=== PATIENT | female | born 1990 | race Caucasian/White ===

== ENCOUNTER 2016-09-19 11:09 | Inpatient (IN) | payer OTHER ==
[2016-09-19 12:24] VITALS: BMI 34.7
--- NOTE | 2016-09-19 13:34 | HP ---
Admission [facility] Chief Complaint: i am here for rehab from heroin,valium,oxydodone.mmtp Allergies/Adverse Reactions: Allergies Allergy/AdvReac Type Severity Reaction Status Date / Time No Known Allergies Allergy Verified 09/19/16 13:29 History of Present Illness: this 26 years old female with opioid dependence and benzodiazepam dependence, mmtp 70 mg/day,last medicated today, last detox 2014 [facility] nicotine dependence bipolar disorder ptsd Exam Limitations: No Limitations - Ebola screening Have you traveled outside of the country in the last 21 days: No Have you had contact with anyone from an Ebola affected area: No Have you been sick,other than usual withdrawal symptoms: No Do you have a fever: No - Review of Systems Constitutional: No Symptoms Reported EENT: reports: No Symptoms Reported Respiratory: reports: No Symptoms reported Cardiac: reports: No Symptoms Reported GI: reports: No Symptoms Reported : reports: No Symptoms Reported Musculoskeletal: reports: Muscle Pain Integumentary: reports: No Symptoms Reported Neuro: reports: No Symptoms reported Endocrine: reports: No Symptoms Reported Hematology: reports: No Symptoms Reported Psychiatric: reports: other (bipolar disorder,ptsd) Patient History - Patient Medical History Hx Anemia: No Hx Asthma: No Hx Chronic Obstructive Pulmonary Disease (COPD): No Hx Cancer: No Hx Cardiac Disorders: No Hx Congestive Heart Failure: No Hx Hypertension: No Hx Hypercholesterolemia: No Hx Pacemaker: No HX Cerebrovascular Accident: No Hx Seizures: No Hx Dementia: No Hx Diabetes: No Hx Gastrointestinal Disorders: No Hx Liver Disease: No Hx Genitourinary Disorders: No Hx Sexually Transmitted Disorders: No Hx Renal Disease (ESRD): No Hx Thyroid Disease: No Hx Human Immunodeficiency Virus (HIV): No (last 2015 ) Hx Hepatitis C: No Hx Depression: No Hx Suicide Attempt: No Hx Bipolar Disorder: Yes (no med) Hx Schizophrenia: No Other Medical History: no suicidal,no homicidal - Patient Surgical History Past Surgical History: No - PPD History Previous Implant?: Yes Documented Results: Negative w/proof Implanted On Prior [facility] Admission?: No PPD to be Administered?: Yes - Reproductive History Patient is a Female of Child Bearing Age (11 -55 yrs old): Yes Last Menstrual Period: 09/15/16 Patient : No - Smoking Cessation Smoking history: Current every day smoker Have you smoked in the past 12 months: Yes Aproximately how many cigarettes per day: 30 Cigars Per Day: 0 Hx Chewing Tobacco Use: No Initiated information on smoking cessation: Yes 'Breaking Loose' booklet given: 09/19/16 - Substance & Tx. History Hx Alcohol Use: No Hx Substance Use: Yes Substance Use Type: Heroin, Tranquilizers Hx Substance Use Treatment: Yes (2014 [facility]) - Substances Abused Heroin Route: Inhalation Frequency: 1-2 times per week Amount used: 2-3 bags Age of first use: 23 Date of Last Use: 09/17/16 Valium Route: Oral Frequency: 3-6 times per week Amount used: 15mg Age of first use: 17 Date of Last Use: 10/12/16 Oxycodone Route: Oral Frequency: 3-6 times per week Amount used: 20-30mg Age of first use: 25 Date of Last Use: 10/11/16 Family Disease History - Family Disease History Family Disease History: Other: Father (dsa) Admission Physical Exam [facility] - Vital Signs Vital Signs: Vital Signs - 24 hr 09/19/16 12:22 Temperature 97.0 F L Pulse Rate 83 Respiratory 18 Rate Blood Pressure 103/56 - Physical General Appearance: Yes: Within Normal Limits HEENTM: Yes: Within Normal Limits Respiratory: Yes: Lungs Clear Neck: Yes: Within Normal Limits Breast: Yes: Breast Exam Deferred Cardiology: Yes: Within Normal Limits, Regular Rhythm, Regular Rate, S1, S2 Abdominal: Yes: Within Normal Limits, Normal Bowel Sounds, Flat, Soft Genitourinary: Yes: Within Normal Limits Back: Yes: Muscle Spasm Musculoskeletal: Yes: Within Normal Limits Extremities: Yes: Within Normal Limits Neurological: Yes: civil attorney II-XII NML intact, Alert, Motor Strength 5/5 Integumentary: Yes: Within Normal Limits, Other (abscess of left hand 3 weeks ago) Lymphatic: Yes: Within Normal Limits - Diagnostic (1) Opioid dependence Current Visit: Yes Status: Acute (2) Benzodiazepine dependence Current Visit: Yes Status: Acute (3) Methadone maintenance therapy patient Current Visit: Yes Status: Acute (4) Nicotine dependence Current Visit: Yes Status: Acute (5) Bipolar disorder Current Visit: Yes Status: Acute (6) PTSD (post-traumatic stress disorder) Current Visit: Yes Status: Acute (7) Abscess of left hand Current Visit: Yes Status: Acute Cleared for Admission [facility] - Detox or Rehab Claeared for Rehab Admission: Yes [facility] Breath Alcohol Content Breath Alcohol Content: 0 Urine Pregancy Test - Result Urine Test Results: Negative- NO Line Present Urine Drug Screen - Results Drug Screen Negative: No Urine Drug Screen Results: OPI-Opiates, BZO-Benzodiazepines, MTD-Methadone, OXY- Oxycodone
[2016-09-19] MEDS ORDERED: MENTHOL/PHENOL 1 EACH UD MM PRN (13:54)
[2016-09-19] MEDS ORDERED: MAGNESIUM CITRATE 300 ML BOTTLE PO PRN (13:54)
[2016-09-19] MEDS ORDERED: IBUPROFEN 400 MG TABLET (FP) PO PRN (13:54)
[2016-09-19] MEDS ORDERED: hydrOXYzine PAMOATE 50 MG CAPSULE (FP) PO PRN (13:54)
[2016-09-19] MEDS ORDERED: MAG HYDROX/AL HYDROX/SIMETH 30 ML UNIT-DOSE CUP PO PRN (13:54)
[2016-09-19] MEDS ORDERED: P-EPHED 60MG/TRIPROLIDI 2.5MG TABLET PO PRN (13:54)
[2016-09-19] MEDS ORDERED: LOPERAMIDE HCL 2 MG CAPSULE PO PRN (13:54)
[2016-09-19] MEDS ORDERED: MAGNESIUM HYDROX 2400MG/30ML ORAL SUSPENSION 30 ML CUP PO PRN (13:54)
[2016-09-19] MEDS ORDERED: guaiFENesin/D-METHORPHAN HB 10 ML UNIT-DOSE CUPS PO PRN (13:54)
[2016-09-19 17:02] LABS: MCH 27.1 pg (25.7-33.7); MCHC 32.8 g/dl (32.0-36.0); MEAN CELL VOLUME 82.8 fl (80-96); MEAN PLT VOLUME 8.8 fl (7.5-11.1); PLATELET COUNT 193 K/MM3 (134-434); RDW 15.3 % (11.6-15.6); WHITE BLOOD COUNT 5.7 K/mm3 (4.0-10.0)
[2016-09-19 17:21] LABS: CREATININE 0.6 mg/dL (0.55-1.02); GLUCOSE,RANDOM 81 mg/dL (74-106)
[2016-09-19 17:22] LABS: ALBUMIN 3.4 g/dl (3.4-5.0); ALK PHOS 84 U/L (45-117); ANION GAP 11 (8-16); BILIRUBIN,TOTAL 0.3 mg/dL (0.2-1.0); CALCIUM 8.5 mg/dL (8.5-10.1); CO2 28 mmol/L (21-32); SGOT/AST 14 U/L (15-37); SGPT/ALT 11 U/L (12-78); TOT PROT 6.1 g/dl (6.4-8.2)
[2016-09-19 17:43] LABS: URINE APPEARANCE CLEAR; URINE BILIRUBIN NEGATIVE (NEGATIVE); URINE COLOR STRAW; URINE GLUCOSE (UA) NEGATIVE (NEGATIVE); URINE KETONE NEGATIVE (NEGATIVE); URINE LEUK ESTERASE NEGATIVE (NEGATIVE); URINE NITRITE NEGATIVE (NEGATIVE); URINE PROTEIN NEGATIVE (NEGATIVE); URINE UROBILINOGEN NEGATIVE E.U./dl (0.2-1.0)
[2016-09-19 17:59] LABS: URINE BLOOD 1+ (NEGATIVE)
[2016-09-19 18:16] LABS: URINE BACTERIA RARE /hpf (NONE SEEN); URINE MUCUS RARE; URINE RBC 3 /hpf (0-3); URINE WBC <1 /hpf (3-5)
[2016-09-19] MEDS ORDERED: LIDOCAINE VISCOUS 2% ORAL/TOP 20 ML UNIT-DOSE CUP MM PRN (18:55)
--- NOTE | 2016-09-19 18:56 | PN ---
S Progress Note Note: RECEIVED NURSE CALL PATIENT HAS TOOTH ACHE LIDOCAINE VISCOUS PRN CONTINUE REHAB
[2016-09-19] MEDS: THIAMINE HCL 100 MG TABLET (FP) PO SCH (21:38)
[2016-09-19] MEDS: SILVER SULFADIAZINE 1% TOP CREAM 50 GM JAR TP SCH (21:38)
[2016-09-19] MEDS: IBUPROFEN 600 MG TABLET (FP) PO PRN (21:39)
[2016-09-20] MEDS ORDERED: METHADONE HCL 10 MG TABLET PO SCH (06:00)
[2016-09-20] MEDS ORDERED: METHADONE HCL 10 MG TABLET ONE (06:04)
[2016-09-20] MEDS ORDERED: METHADONE HCL 40 MG DISPERSABLE TABLET ONE (06:05)
[2016-09-20] MEDS: METHADONE 40 MG, METHADONE 30 MG PO SCH (06:50)
[2016-09-20] MEDS: IBUPROFEN 600 MG TABLET (FP) PO PRN ×3 (08:51→21:33)
[2016-09-20] MEDS: NICOTINE 21 MG/24 HOURS TOPICAL PATCH TD SCH (10:02)
[2016-09-20] MEDS: SILVER SULFADIAZINE 1% TOP CREAM 50 GM JAR TP SCH ×2 (10:02→21:33)
[2016-09-20] MEDS: PRENATAL VITAMINS W/ FOLIC ACID TABLET (FP) PO SCH (10:02)
[2016-09-20] MEDS: NICOTINE POLACRILEX 4 MG GUM BUC PRN (10:04)
[2016-09-20 13:38] LABS: URINE APPEARANCE SLCLOUDY; URINE BILIRUBIN NEGATIVE (NEGATIVE); URINE BLOOD NEGATIVE (NEGATIVE); URINE COLOR YELLOW; URINE GLUCOSE (UA) NEGATIVE (NEGATIVE); URINE KETONE NEGATIVE (NEGATIVE); URINE LEUK ESTERASE TRACE (NEGATIVE); URINE NITRITE NEGATIVE (NEGATIVE); URINE PROTEIN NEGATIVE (NEGATIVE); URINE UROBILINOGEN NEGATIVE E.U./dl (0.2-1.0)
[2016-09-20 13:41] LABS: URINE BACTERIA RARE /hpf (NONE SEEN); URINE MUCUS RARE; URINE RBC 1 /hpf (0-3); URINE WBC 2 /hpf (3-5)
[2016-09-20] MEDS ORDERED: PT OWN MED DRAWER 7, Y5N ONE (16:03)
[2016-09-20] MEDS: LIDOCAINE VISCOUS 2% ORAL/TOP 20 ML UNIT-DOSE CUP MM PRN ×2 (16:05→21:32)
--- NOTE | 2016-09-20 18:33 | EKG ---
Test Reason : Blood Pressure : / mmHG Vent. Rate : 074 BPM Atrial Rate : 074 BPM P-R Int : 172 ms QRS Dur : 094 ms QT Int : 416 ms P-R-T Axes : 022 038 037 degrees QTc Int : 461 ms NORMAL SINUS RHYTHM CANNOT RULE OUT ANTERIOR INFARCT , AGE UNDETERMINED T WAVE ABNORMALITY, CONSIDER ANTERIOR ISCHEMIA ABNORMAL ECG NO PREVIOUS ECGS AVAILABLE Confirmed by YAMILETH LEMUS MD ([id number]) on 09/20/2016 6:33:01 PM Referred By: Confirmed By:YAMILETH LEMUS MD
[2016-09-20] MEDS: THIAMINE HCL 100 MG TABLET (FP) PO SCH (21:28)
[2016-09-21] MEDS ORDERED: METHADONE HCL 10 MG TABLET ONE (05:42)
[2016-09-21] MEDS ORDERED: METHADONE HCL 40 MG DISPERSABLE TABLET ONE (05:43)
[2016-09-21] MEDS: IBUPROFEN 600 MG TABLET (FP) PO PRN ×3 (06:06→21:35)
[2016-09-21] MEDS: METHADONE 40 MG, METHADONE 30 MG PO SCH (06:06)
[2016-09-21] MEDS: LIDOCAINE VISCOUS 2% ORAL/TOP 20 ML UNIT-DOSE CUP MM PRN ×3 (06:20→21:37)
[2016-09-21] MEDS: ACETAMINOPHEN 325 MG TABLET (FP) PO PRN ×2 (08:51→15:22)
[2016-09-21] MEDS: PRENATAL VITAMINS W/ FOLIC ACID TABLET (FP) PO SCH (09:51)
[2016-09-21] MEDS: SILVER SULFADIAZINE 1% TOP CREAM 50 GM JAR TP SCH ×2 (09:52→21:34)
[2016-09-21] MEDS: NICOTINE 21 MG/24 HOURS TOPICAL PATCH TD SCH (09:52)
[2016-09-21] MEDS: NICOTINE POLACRILEX 4 MG GUM BUC PRN (09:52)
[2016-09-21] MEDS: THIAMINE HCL 100 MG TABLET (FP) PO SCH (21:34)
[2016-09-22] MEDS ORDERED: METHADONE HCL 40 MG DISPERSABLE TABLET ONE (03:16)
[2016-09-22] MEDS ORDERED: METHADONE HCL 10 MG TABLET ONE (03:16)
[2016-09-22] MEDS: METHADONE 40 MG, METHADONE 30 MG PO SCH (06:30)
[2016-09-22] MEDS: IBUPROFEN 600 MG TABLET (FP) PO PRN ×3 (06:31→21:23)
[2016-09-22] MEDS: LIDOCAINE VISCOUS 2% ORAL/TOP 20 ML UNIT-DOSE CUP MM PRN ×3 (06:32→21:23)
[2016-09-22] MEDS: NICOTINE 21 MG/24 HOURS TOPICAL PATCH TD SCH (10:06)
[2016-09-22] MEDS: PRENATAL VITAMINS W/ FOLIC ACID TABLET (FP) PO SCH (10:06)
[2016-09-22] MEDS: ACETAMINOPHEN 325 MG TABLET (FP) PO PRN (10:08)
[2016-09-22] MEDS: NICOTINE POLACRILEX 4 MG GUM BUC PRN (10:09)
[2016-09-22] MEDS: SILVER SULFADIAZINE 1% TOP CREAM 50 GM JAR TP SCH ×2 (10:09→21:24)
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
[2016-09-22] MEDS: QUEtiapine FUMARATE 100 MG TABLET (FP) PO SCH (21:22)
[2016-09-22] MEDS: THIAMINE HCL 100 MG TABLET (FP) PO SCH (21:22)
[2016-09-23] MEDS ORDERED: METHADONE HCL 40 MG DISPERSABLE TABLET ONE (05:48)
[2016-09-23] MEDS ORDERED: METHADONE HCL 10 MG TABLET ONE (05:48)
[2016-09-23] MEDS: METHADONE 40 MG, METHADONE 30 MG PO SCH (06:25)
[2016-09-23] MEDS: IBUPROFEN 600 MG TABLET (FP) PO PRN ×3 (06:29→21:31)
[2016-09-23] MEDS ORDERED: PT OWN MED DRAWER 7, Y5N ONE ×2 (08:31→20:07)
[2016-09-23] MEDS: NICOTINE 21 MG/24 HOURS TOPICAL PATCH TD SCH (09:55)
[2016-09-23] MEDS: PRENATAL VITAMINS W/ FOLIC ACID TABLET (FP) PO SCH (09:55)
[2016-09-23] MEDS: SILVER SULFADIAZINE 1% TOP CREAM 50 GM JAR TP SCH ×2 (09:56→21:29)
[2016-09-23] MEDS: QUEtiapine FUMARATE 100 MG TABLET (FP) PO SCH (21:28)
[2016-09-23] MEDS: THIAMINE HCL 100 MG TABLET (FP) PO SCH (21:29)
[2016-09-23] MEDS: LIDOCAINE VISCOUS 2% ORAL/TOP 20 ML UNIT-DOSE CUP MM PRN (21:30)
[2016-09-24] MEDS ORDERED: METHADONE HCL 10 MG TABLET ONE (03:43)
[2016-09-24] MEDS ORDERED: METHADONE HCL 40 MG DISPERSABLE TABLET ONE (03:43)
[2016-09-24] MEDS: METHADONE 40 MG, METHADONE 30 MG PO SCH (06:46)
[2016-09-24] MEDS: IBUPROFEN 600 MG TABLET (FP) PO PRN ×2 (06:48→21:28)
[2016-09-24] MEDS: LIDOCAINE VISCOUS 2% ORAL/TOP 20 ML UNIT-DOSE CUP MM PRN (06:49)
[2016-09-24] MEDS: NICOTINE 21 MG/24 HOURS TOPICAL PATCH TD SCH (10:28)
[2016-09-24] MEDS: NICOTINE POLACRILEX 4 MG GUM BUC PRN (10:29)
[2016-09-24] MEDS: ACETAMINOPHEN 325 MG TABLET (FP) PO PRN (10:29)
[2016-09-24] MEDS: PRENATAL VITAMINS W/ FOLIC ACID TABLET (FP) PO SCH (10:30)
[2016-09-24] MEDS: SILVER SULFADIAZINE 1% TOP CREAM 50 GM JAR TP SCH ×2 (10:30→21:29)
[2016-09-24] MEDS: QUEtiapine FUMARATE 100 MG TABLET (FP) PO SCH (21:29)
[2016-09-24] MEDS: diphenhydrAMINE HCL 50 MG CAPSULE PO PRN (21:29)
[2016-09-24] MEDS: THIAMINE HCL 100 MG TABLET (FP) PO SCH (21:29)
[2016-09-25] MEDS ORDERED: METHADONE HCL 40 MG DISPERSABLE TABLET ONE (03:13)
[2016-09-25] MEDS ORDERED: METHADONE HCL 10 MG TABLET ONE (03:13)
[2016-09-25] MEDS: METHADONE 40 MG, METHADONE 30 MG PO SCH (06:44)
[2016-09-25] MEDS: IBUPROFEN 600 MG TABLET (FP) PO PRN ×2 (06:45→21:32)
[2016-09-25] MEDS: LIDOCAINE VISCOUS 2% ORAL/TOP 20 ML UNIT-DOSE CUP MM PRN ×2 (06:45→21:32)
[2016-09-25] MEDS: ACETAMINOPHEN 325 MG TABLET (FP) PO PRN (10:04)
[2016-09-25] MEDS: SILVER SULFADIAZINE 1% TOP CREAM 50 GM JAR TP SCH ×2 (10:05→21:30)
[2016-09-25] MEDS: PRENATAL VITAMINS W/ FOLIC ACID TABLET (FP) PO SCH (10:05)
[2016-09-25] MEDS: NICOTINE 21 MG/24 HOURS TOPICAL PATCH TD SCH (10:06)
[2016-09-25] MEDS: NICOTINE POLACRILEX 4 MG GUM BUC PRN (10:07)
[2016-09-25] MEDS: QUEtiapine FUMARATE 100 MG TABLET (FP) PO SCH (21:30)
[2016-09-25] MEDS: THIAMINE HCL 100 MG TABLET (FP) PO SCH (21:30)
[2016-09-25] MEDS: diphenhydrAMINE HCL 50 MG CAPSULE PO PRN (21:32)
[2016-09-26] MEDS ORDERED: METHADONE HCL 10 MG TABLET PO SCH (06:00)
[2016-09-26] MEDS ORDERED: METHADONE HCL 40 MG DISPERSABLE TABLET ONE (06:32)
[2016-09-26] MEDS ORDERED: METHADONE HCL 10 MG TABLET ONE (06:32)
[2016-09-26] MEDS: METHADONE 40 MG, METHADONE 30 MG PO SCH (06:56)
[2016-09-26] MEDS: IBUPROFEN 600 MG TABLET (FP) PO PRN ×3 (06:59→21:23)
[2016-09-26] MEDS: SILVER SULFADIAZINE 1% TOP CREAM 50 GM JAR TP SCH ×2 (10:15→23:07)
[2016-09-26] MEDS: NICOTINE 21 MG/24 HOURS TOPICAL PATCH TD SCH (10:15)
[2016-09-26] MEDS: PRENATAL VITAMINS W/ FOLIC ACID TABLET (FP) PO SCH (10:15)
[2016-09-26] MEDS: NICOTINE POLACRILEX 4 MG GUM BUC PRN (10:17)
[2016-09-26] MEDS: ACETAMINOPHEN 325 MG TABLET (FP) PO PRN (10:18)
[2016-09-26] MEDS: QUEtiapine FUMARATE 100 MG TABLET (FP) PO SCH (21:22)
[2016-09-26] MEDS: THIAMINE HCL 100 MG TABLET (FP) PO SCH (21:22)
[2016-09-26] MEDS: diphenhydrAMINE HCL 50 MG CAPSULE PO PRN (21:24)
[2016-09-27] MEDS ORDERED: METHADONE HCL 10 MG TABLET ONE (03:08)
[2016-09-27] MEDS ORDERED: METHADONE HCL 40 MG DISPERSABLE TABLET ONE (03:09)
[2016-09-27] MEDS: METHADONE 40 MG, METHADONE 30 MG PO SCH (06:40)
[2016-09-27] MEDS: IBUPROFEN 600 MG TABLET (FP) PO PRN ×2 (06:42→18:10)
[2016-09-27] MEDS ORDERED: PT OWN MED DRAWER 7, Y5N ONE ×2 (08:17→19:59)
[2016-09-27] MEDS: SILVER SULFADIAZINE 1% TOP CREAM 50 GM JAR TP SCH ×2 (09:40→21:31)
[2016-09-27] MEDS: PRENATAL VITAMINS W/ FOLIC ACID TABLET (FP) PO SCH (09:40)
[2016-09-27] MEDS: NICOTINE 21 MG/24 HOURS TOPICAL PATCH TD SCH (09:40)
[2016-09-27] MEDS: LIDOCAINE VISCOUS 2% ORAL/TOP 20 ML UNIT-DOSE CUP MM PRN (09:42)
[2016-09-27] MEDS: ACETAMINOPHEN 325 MG TABLET (FP) PO PRN ×2 (09:42→21:32)
[2016-09-27] MEDS: NICOTINE POLACRILEX 4 MG GUM BUC PRN (09:43)
[2016-09-27] MEDS: THIAMINE HCL 100 MG TABLET (FP) PO SCH (21:30)
[2016-09-27] MEDS: QUEtiapine FUMARATE 100 MG TABLET (FP) PO SCH (21:31)
[2016-09-27] MEDS: diphenhydrAMINE HCL 50 MG CAPSULE PO PRN (21:32)
[2016-09-28] MEDS ORDERED: METHADONE HCL 10 MG TABLET ONE (03:18)
[2016-09-28] MEDS ORDERED: METHADONE HCL 40 MG DISPERSABLE TABLET ONE (03:18)
[2016-09-28] MEDS: METHADONE 40 MG, METHADONE 30 MG PO SCH (06:29)
[2016-09-28] MEDS: IBUPROFEN 600 MG TABLET (FP) PO PRN ×3 (06:30→23:17)
[2016-09-28] MEDS: NICOTINE 21 MG/24 HOURS TOPICAL PATCH TD SCH (10:03)
[2016-09-28] MEDS: PRENATAL VITAMINS W/ FOLIC ACID TABLET (FP) PO SCH (10:03)
[2016-09-28] MEDS: SILVER SULFADIAZINE 1% TOP CREAM 50 GM JAR TP SCH ×2 (10:04→21:13)
[2016-09-28] MEDS: NICOTINE POLACRILEX 4 MG GUM BUC PRN (10:06)
[2016-09-28] MEDS: ACETAMINOPHEN 325 MG TABLET (FP) PO PRN ×2 (10:06→19:01)
[2016-09-28] MEDS ORDERED: PT OWN MED DRAWER 7, Y5N ONE (19:57)
[2016-09-28] MEDS: LIDOCAINE VISCOUS 2% ORAL/TOP 20 ML UNIT-DOSE CUP MM PRN (21:13)
[2016-09-28] MEDS: diphenhydrAMINE HCL 50 MG CAPSULE PO PRN (21:13)
[2016-09-28] MEDS: QUEtiapine FUMARATE 100 MG TABLET (FP) PO SCH (21:13)
[2016-09-28] MEDS: THIAMINE HCL 100 MG TABLET (FP) PO SCH (21:13)
[2016-09-29] MEDS ORDERED: METHADONE HCL 10 MG TABLET ONE (03:23)
[2016-09-29] MEDS ORDERED: METHADONE HCL 40 MG DISPERSABLE TABLET ONE (03:23)
[2016-09-29] MEDS: IBUPROFEN 600 MG TABLET (FP) PO PRN ×3 (06:47→21:31)
[2016-09-29] MEDS: METHADONE 40 MG, METHADONE 30 MG PO SCH (06:47)
[2016-09-29] MEDS: PRENATAL VITAMINS W/ FOLIC ACID TABLET (FP) PO SCH (10:08)
[2016-09-29] MEDS: SILVER SULFADIAZINE 1% TOP CREAM 50 GM JAR TP SCH ×2 (10:08→21:29)
[2016-09-29] MEDS ORDERED: PT OWN MED DRAWER 7, Y5N ONE (10:08)
[2016-09-29] MEDS: ACETAMINOPHEN 325 MG TABLET (FP) PO PRN (10:08)
[2016-09-29] MEDS: LIDOCAINE VISCOUS 2% ORAL/TOP 20 ML UNIT-DOSE CUP MM PRN (10:08)
[2016-09-29] MEDS: NICOTINE 21 MG/24 HOURS TOPICAL PATCH TD SCH (10:10)
[2016-09-29] MEDS: NICOTINE POLACRILEX 4 MG GUM BUC PRN ×2 (10:11→12:56)
[2016-09-29] MEDS: THIAMINE HCL 100 MG TABLET (FP) PO SCH (21:29)
[2016-09-29] MEDS: QUEtiapine FUMARATE 100 MG TABLET (FP) PO SCH (21:29)
[2016-09-29] MEDS: diphenhydrAMINE HCL 50 MG CAPSULE PO PRN (21:31)
[2016-09-30] MEDS ORDERED: METHADONE HCL 10 MG TABLET ONE (05:51)
[2016-09-30] MEDS ORDERED: METHADONE HCL 40 MG DISPERSABLE TABLET ONE (05:52)
[2016-09-30] MEDS: METHADONE 40 MG, METHADONE 30 MG PO SCH (06:37)
[2016-09-30] MEDS: IBUPROFEN 600 MG TABLET (FP) PO PRN ×3 (06:40→21:28)
[2016-09-30] MEDS ORDERED: PT OWN MED DRAWER 7, Y5N ONE ×2 (08:40→21:27)
[2016-09-30] MEDS: PRENATAL VITAMINS W/ FOLIC ACID TABLET (FP) PO SCH (09:58)
[2016-09-30] MEDS: NICOTINE 21 MG/24 HOURS TOPICAL PATCH TD SCH (09:58)
[2016-09-30] MEDS: SILVER SULFADIAZINE 1% TOP CREAM 50 GM JAR TP SCH ×2 (09:59→21:29)
[2016-09-30] MEDS: ACETAMINOPHEN 325 MG TABLET (FP) PO PRN (10:00)
[2016-09-30] MEDS: LIDOCAINE VISCOUS 2% ORAL/TOP 20 ML UNIT-DOSE CUP MM PRN ×2 (14:02→21:28)
--- NOTE | 2016-09-30 17:42 | PN ---
[facility] Progress Note Note: received nurse call patient has pruritus erythema rashes under both breasts trail of clotrimazole cream bid continue rehab
[2016-09-30] MEDS: CLOTRIMAZOLE 1% CREAM 15 GM TUBE TP SCH (21:27)
[2016-09-30] MEDS: THIAMINE HCL 100 MG TABLET (FP) PO SCH (21:28)
[2016-09-30] MEDS: diphenhydrAMINE HCL 50 MG CAPSULE PO PRN (21:28)
[2016-09-30] MEDS: QUEtiapine FUMARATE 100 MG TABLET (FP) PO SCH (21:28)
[2016-10-01] MEDS: METHADONE HCL 40 MG DISPERSABLE TABLET PO SCH (06:14)
[2016-10-01] MEDS: IBUPROFEN 600 MG TABLET (FP) PO PRN ×2 (06:14→21:19)
[2016-10-01] MEDS ORDERED: PT OWN MED DRAWER 7, Y5N ONE ×2 (08:28→21:21)
[2016-10-01] MEDS: SILVER SULFADIAZINE 1% TOP CREAM 50 GM JAR TP SCH ×2 (09:53→21:24)
[2016-10-01] MEDS: CLOTRIMAZOLE 1% CREAM 15 GM TUBE TP SCH ×2 (09:54→21:21)
[2016-10-01] MEDS: NICOTINE 21 MG/24 HOURS TOPICAL PATCH TD SCH (09:54)
[2016-10-01] MEDS: PRENATAL VITAMINS W/ FOLIC ACID TABLET (FP) PO SCH (09:54)
[2016-10-01] MEDS: ACETAMINOPHEN 325 MG TABLET (FP) PO PRN (09:56)
[2016-10-01] MEDS: NICOTINE POLACRILEX 4 MG GUM BUC PRN (09:56)
--- NOTE | 2016-10-01 14:42 | PN ---
Psychiatric Progress Note Vital Signs: Vital Signs Period Temp Pulse Resp BP Sys/Espinosa Pulse Ox Last 24 Hr 97.8 F 60 18-18 106/67 Date of Session: 10/01/16 Chief Complaint:: "Sleep is still a big problem again." HPI: Patient adddressed Opioid,Sedative dependence comorbid with Bipolar disorder,PTSD. Current Medications: Active Medications Generic Name Dose Route Start Last Admin Trade Name Freq PRN Reason Stop Dose Admin Acetaminophen 650 mg 09/19/16 13:54 10/01/16 09:56 Tylenol - PO 650 mg Q4H PRN Administration PAIN Al Hydroxide/Mg Hydroxide 30 ml 09/19/16 13:54 Mylanta Oral Suspension - PO Q6H PRN DYSPEPSIA Clotrimazole 1 applic 09/30/16 22:00 10/01/16 09:54 Lotrimin 1% Cream - TP 1 applic BID ZOHAIB Administration Diphenhydramine HCl 50 mg 09/19/16 13:54 09/30/16 21:28 Benadryl - PO 50 mg HSMR1 PRN Administration INSOMNIA Eucalyptus/Menthol/Phenol/Sorbitol 1 each 09/19/16 13:54 Cepastat Lozenge - MM Q4H PRN SORE THROAT Guaifenesin 10 ml 09/19/16 13:54 Robitussin Dm - PO Q6H PRN COUGH Hydroxyzine Pamoate 50 mg 09/19/16 13:54 Vistaril - PO Q4H PRN AGITATION Ibuprofen 600 mg 09/19/16 13:59 10/01/16 06:14 Motrin - PO 600 mg Q6H PRN Administration PAIN Lidocaine HCl 15 ml 09/20/16 14:43 09/30/16 21:28 Xylocaine 2% Viscous Oral - MM 15 ml Q6H PRN Administration ORAL PAIN/MOUTH SORES Loperamide HCl 4 mg 09/19/16 13:54 Imodium - PO Q6H PRN DIARRHEA Magnesium Citrate 300 ml 09/19/16 13:54 Citroma - PO Q48H PRN CONSTIPATION Magnesium Hydroxide 30 ml 09/19/16 13:54 Milk Of Magnesia - PO DAILY PRN CONSTIPATION Methadone HCl 80 mg 10/01/16 06:00 10/01/16 06:14 Dolophine - PO 10/07/16 05:59 80 mg DAILY@0600 ZOHAIB Administration Nicotine 21 mg 09/20/16 10:00 10/01/16 09:54 Nicoderm Patch - TD 21 mg DAILY ZOHAIB Administration Nicotine Polacrilex 4 mg 09/19/16 13:54 10/01/16 09:56 Nicorette Gum - BUC 4 mg Q2H PRN Administration NICOTINE REPLACEMENT RX Multivit/Folic Acid/Iron 1 tab 09/20/16 10:00 10/01/16 09:54 Vitamins (Sjr) - PO 1 tab DAILY ZOHAIB Administration Pseudoephedrine/Triprolidine 1 combo 09/19/16 13:54 Actifed - PO TID PRN NASAL CONGESTION Quetiapine Fumarate 150 mg 10/01/16 22:00 Seroquel - PO HS ZOHAIB Silver Sulfadiazine 1 applic 09/19/16 22:00 10/01/16 09:53 Silvadene - TP 1 applic BID ZOHAIB Administration Thiamine HCl 100 mg 09/19/16 22:00 09/30/16 21:28 Vitamin B1 - PO 100 mg HS ZOHAIB Administration Current Side Effect: No Lab tests ordered: No Lab tests reviewed: Yes Provider note:: Chart was revuewed,patient was evaluated in my office,current medications discussed with the patient.Properties of Seroquel has been discussed with the patient including side effects,benefits and dose adjustment. Seroquel 100 mg po hs will be adjusted to 150 mg po hs.Relaxation,sleep improving techniques has been discussed with the patient.Supportive therapy provided. Total face to face time:: 30 Mental Status Exam - Mental Status Exam Alert and Oriented to: Time, Place, Person Cognitive Function: Grossly Intact Patient Appearance: Well Groomed Mood: Anxious Affect: Mood Congruent, Labile Patient Behavior: Cooperative Speech Pattern: Clear Voice Loudness: Normal Thought Process: Goal Oriented Thought Disorder: Not Present Hallucinations: Denies Suicidal Ideation: Denies Homicidal Ideation: Denies Insight/Judgement: Fair Sleep: Difficulty falling asleep Appetite: Fair Muscle strength/Tone: Normal Gait/Station: Normal Psychiatric Treatment Plan - Problem List (1) Benzodiazepine dependence Current Visit: Yes (2) Bipolar disorder Current Visit: Yes (3) Methadone maintenance therapy patient Current Visit: Yes (4) Nicotine dependence Current Visit: Yes (5) Opioid dependence Current Visit: Yes (6) PTSD (post-traumatic stress disorder) Current Visit: Yes
[2016-10-01] MEDS: diphenhydrAMINE HCL 50 MG CAPSULE PO PRN (21:22)
[2016-10-01] MEDS: QUEtiapine FUMARATE 50 MG TABLET PO SCH (21:23)
[2016-10-01] MEDS: THIAMINE HCL 100 MG TABLET (FP) PO SCH (21:24)
[2016-10-02] MEDS: METHADONE HCL 40 MG DISPERSABLE TABLET PO SCH (06:10)
[2016-10-02] MEDS: IBUPROFEN 600 MG TABLET (FP) PO PRN ×3 (06:10→21:19)
[2016-10-02] MEDS: ACETAMINOPHEN 325 MG TABLET (FP) PO PRN ×2 (08:43→18:25)
[2016-10-02] MEDS: PRENATAL VITAMINS W/ FOLIC ACID TABLET (FP) PO SCH (10:20)
[2016-10-02] MEDS: SILVER SULFADIAZINE 1% TOP CREAM 50 GM JAR TP SCH ×2 (10:20→21:21)
[2016-10-02] MEDS: CLOTRIMAZOLE 1% CREAM 15 GM TUBE TP SCH ×2 (10:20→21:21)
[2016-10-02] MEDS: NICOTINE 21 MG/24 HOURS TOPICAL PATCH TD SCH (10:21)
[2016-10-02] MEDS: NICOTINE POLACRILEX 4 MG GUM BUC PRN (10:21)
[2016-10-02] MEDS: LIDOCAINE VISCOUS 2% ORAL/TOP 20 ML UNIT-DOSE CUP MM PRN (13:42)
[2016-10-02] MEDS: QUEtiapine FUMARATE 50 MG TABLET PO SCH (21:18)
[2016-10-02] MEDS: diphenhydrAMINE HCL 50 MG CAPSULE PO PRN (21:18)
[2016-10-02] MEDS: THIAMINE HCL 100 MG TABLET (FP) PO SCH (21:18)
[2016-10-03] MEDS: METHADONE HCL 40 MG DISPERSABLE TABLET PO SCH (06:35)
[2016-10-03] MEDS: IBUPROFEN 600 MG TABLET (FP) PO PRN ×3 (06:36→17:57)
[2016-10-03] MEDS ORDERED: PT OWN MED DRAWER 7, Y5N ONE ×3 (08:41→19:41)
[2016-10-03] MEDS: SILVER SULFADIAZINE 1% TOP CREAM 50 GM JAR TP SCH ×2 (10:53→21:38)
[2016-10-03] MEDS: PRENATAL VITAMINS W/ FOLIC ACID TABLET (FP) PO SCH (10:53)
[2016-10-03] MEDS: NICOTINE 21 MG/24 HOURS TOPICAL PATCH TD SCH (10:53)
[2016-10-03] MEDS: CLOTRIMAZOLE 1% CREAM 15 GM TUBE TP SCH ×2 (10:53→21:38)
[2016-10-03] MEDS: ACETAMINOPHEN 325 MG TABLET (FP) PO PRN (10:55)
[2016-10-03] MEDS: NICOTINE POLACRILEX 4 MG GUM BUC PRN (10:56)
[2016-10-03] MEDS: LIDOCAINE VISCOUS 2% ORAL/TOP 20 ML UNIT-DOSE CUP MM PRN (12:45)
--- NOTE | 2016-10-03 14:17 | PN ---
[facility] Progress Note Note: Dental abscess left lower molar,rash under breast. Mouth : every tooth is decayed,inflammation of gum and abscess lt. lower molar Dx. : Generalized gingivitis P : Amox. 500mg BID Continue Lotrimin add HC 1%
[2016-10-03] MEDS: AMOXICILLIN 500 MG CAPSULE (FP) PO SCH ×2 (15:09→21:32)
[2016-10-03] MEDS: THIAMINE HCL 100 MG TABLET (FP) PO SCH (21:32)
[2016-10-03] MEDS: diphenhydrAMINE HCL 50 MG CAPSULE PO PRN (21:32)
[2016-10-03] MEDS: QUEtiapine FUMARATE 50 MG TABLET PO SCH (21:32)
[2016-10-03] MEDS: HYDROCORTISONE 1% TOPICAL CREAM 30 GM TUBE TP SCH (21:42)
[2016-10-04] MEDS ORDERED: PT OWN MED DRAWER 7, Y5N ONE ×2 (05:49→08:58)
[2016-10-04] MEDS: METHADONE HCL 40 MG DISPERSABLE TABLET PO SCH (06:46)
[2016-10-04] MEDS: AMOXICILLIN 500 MG CAPSULE (FP) PO SCH ×3 (06:47→21:31)
[2016-10-04] MEDS: IBUPROFEN 600 MG TABLET (FP) PO PRN ×3 (06:48→18:15)
[2016-10-04] MEDS: ACETAMINOPHEN 325 MG TABLET (FP) PO PRN ×2 (08:58→21:33)
[2016-10-04] MEDS: SILVER SULFADIAZINE 1% TOP CREAM 50 GM JAR TP SCH ×2 (10:10→21:31)
[2016-10-04] MEDS: PRENATAL VITAMINS W/ FOLIC ACID TABLET (FP) PO SCH (10:10)
[2016-10-04] MEDS: NICOTINE 21 MG/24 HOURS TOPICAL PATCH TD SCH (10:11)
[2016-10-04] MEDS: NICOTINE POLACRILEX 4 MG GUM BUC PRN (10:12)
[2016-10-04] MEDS: CLOTRIMAZOLE 1% CREAM 15 GM TUBE TP SCH ×2 (10:12→21:32)
[2016-10-04] MEDS: HYDROCORTISONE 1% TOPICAL CREAM 30 GM TUBE TP SCH ×2 (10:13→21:32)
[2016-10-04] MEDS: QUEtiapine FUMARATE 50 MG TABLET PO SCH (21:31)
[2016-10-04] MEDS: THIAMINE HCL 100 MG TABLET (FP) PO SCH (21:31)
[2016-10-04] MEDS: diphenhydrAMINE HCL 50 MG CAPSULE PO PRN (21:32)
[2016-10-05] MEDS: AMOXICILLIN 500 MG CAPSULE (FP) PO SCH ×3 (06:41→21:28)
[2016-10-05] MEDS: METHADONE HCL 40 MG DISPERSABLE TABLET PO SCH (06:41)
[2016-10-05] MEDS: IBUPROFEN 600 MG TABLET (FP) PO PRN ×3 (06:42→21:28)
[2016-10-05] MEDS: NICOTINE 21 MG/24 HOURS TOPICAL PATCH TD SCH (09:57)
[2016-10-05] MEDS: ACETAMINOPHEN 325 MG TABLET (FP) PO PRN (09:58)
[2016-10-05] MEDS: PRENATAL VITAMINS W/ FOLIC ACID TABLET (FP) PO SCH (09:58)
[2016-10-05] MEDS: NICOTINE POLACRILEX 4 MG GUM BUC PRN ×2 (09:58→13:31)
[2016-10-05] MEDS: HYDROCORTISONE 1% TOPICAL CREAM 30 GM TUBE TP SCH ×2 (09:58→21:29)
[2016-10-05] MEDS: SILVER SULFADIAZINE 1% TOP CREAM 50 GM JAR TP SCH ×2 (10:00→21:30)
[2016-10-05] MEDS: CLOTRIMAZOLE 1% CREAM 15 GM TUBE TP SCH ×2 (10:00→21:29)
[2016-10-05] MEDS: QUEtiapine FUMARATE 50 MG TABLET PO SCH (21:28)
[2016-10-05] MEDS: diphenhydrAMINE HCL 50 MG CAPSULE PO PRN (21:29)
[2016-10-05] MEDS: THIAMINE HCL 100 MG TABLET (FP) PO SCH (21:30)
[2016-10-06] MEDS: METHADONE HCL 40 MG DISPERSABLE TABLET PO SCH (06:57)
[2016-10-06] MEDS: AMOXICILLIN 500 MG CAPSULE (FP) PO SCH ×3 (06:57→21:25)
[2016-10-06] MEDS: ACETAMINOPHEN 325 MG TABLET (FP) PO PRN (09:50)
[2016-10-06] MEDS: NICOTINE 21 MG/24 HOURS TOPICAL PATCH TD SCH (09:51)
[2016-10-06] MEDS: PRENATAL VITAMINS W/ FOLIC ACID TABLET (FP) PO SCH (09:51)
[2016-10-06] MEDS: CLOTRIMAZOLE 1% CREAM 15 GM TUBE TP SCH ×2 (09:52→21:28)
[2016-10-06] MEDS: HYDROCORTISONE 1% TOPICAL CREAM 30 GM TUBE TP SCH ×2 (09:52→21:28)
[2016-10-06] MEDS: SILVER SULFADIAZINE 1% TOP CREAM 50 GM JAR TP SCH ×2 (09:52→21:28)
[2016-10-06] MEDS: NICOTINE POLACRILEX 4 MG GUM BUC PRN (09:53)
[2016-10-06] MEDS ORDERED: PT OWN MED DRAWER 7, Y5N ONE (20:01)
[2016-10-06] MEDS: THIAMINE HCL 100 MG TABLET (FP) PO SCH (21:25)
[2016-10-06] MEDS: QUEtiapine FUMARATE 50 MG TABLET PO SCH (21:26)
[2016-10-06] MEDS: diphenhydrAMINE HCL 50 MG CAPSULE PO PRN (21:27)
[2016-10-06] MEDS: IBUPROFEN 600 MG TABLET (FP) PO PRN (21:27)
[2016-10-07] MEDS: METHADONE HCL 40 MG DISPERSABLE TABLET PO SCH (06:12)
[2016-10-07] MEDS: AMOXICILLIN 500 MG CAPSULE (FP) PO SCH ×3 (06:13→21:32)
[2016-10-07] MEDS: IBUPROFEN 600 MG TABLET (FP) PO PRN ×3 (06:14→21:31)
[2016-10-07] MEDS: PRENATAL VITAMINS W/ FOLIC ACID TABLET (FP) PO SCH (10:00)
[2016-10-07] MEDS: NICOTINE 21 MG/24 HOURS TOPICAL PATCH TD SCH (10:00)
[2016-10-07] MEDS: CLOTRIMAZOLE 1% CREAM 15 GM TUBE TP SCH ×2 (10:01→21:34)
[2016-10-07] MEDS: HYDROCORTISONE 1% TOPICAL CREAM 30 GM TUBE TP SCH ×2 (10:01→21:34)
[2016-10-07] MEDS: SILVER SULFADIAZINE 1% TOP CREAM 50 GM JAR TP SCH ×2 (10:01→21:42)
[2016-10-07] MEDS: ACETAMINOPHEN 325 MG TABLET (FP) PO PRN (10:02)
[2016-10-07] MEDS: LIDOCAINE VISCOUS 2% ORAL/TOP 20 ML UNIT-DOSE CUP MM PRN (13:03)
[2016-10-07] MEDS: QUEtiapine FUMARATE 50 MG TABLET PO SCH (21:32)
[2016-10-07] MEDS: diphenhydrAMINE HCL 50 MG CAPSULE PO PRN (21:32)
[2016-10-07] MEDS: THIAMINE HCL 100 MG TABLET (FP) PO SCH (21:33)
[2016-10-08] MEDS: METHADONE HCL 40 MG DISPERSABLE TABLET PO SCH (06:20)
[2016-10-08] MEDS: AMOXICILLIN 500 MG CAPSULE (FP) PO SCH ×3 (06:21→21:27)
[2016-10-08] MEDS: IBUPROFEN 600 MG TABLET (FP) PO PRN ×3 (06:21→21:29)
[2016-10-08] MEDS ORDERED: PT OWN MED DRAWER 7, Y5N ONE (08:33)
[2016-10-08] MEDS: CLOTRIMAZOLE 1% CREAM 15 GM TUBE TP SCH ×2 (10:07→21:30)
[2016-10-08] MEDS: HYDROCORTISONE 1% TOPICAL CREAM 30 GM TUBE TP SCH ×2 (10:07→21:30)
[2016-10-08] MEDS: NICOTINE 21 MG/24 HOURS TOPICAL PATCH TD SCH (10:07)
[2016-10-08] MEDS: PRENATAL VITAMINS W/ FOLIC ACID TABLET (FP) PO SCH (10:08)
[2016-10-08] MEDS: SILVER SULFADIAZINE 1% TOP CREAM 50 GM JAR TP SCH ×2 (10:08→21:30)
[2016-10-08] MEDS: NICOTINE POLACRILEX 4 MG GUM BUC PRN (10:10)
[2016-10-08] MEDS: ACETAMINOPHEN 325 MG TABLET (FP) PO PRN ×2 (11:54→18:05)
[2016-10-08] MEDS: LIDOCAINE VISCOUS 2% ORAL/TOP 20 ML UNIT-DOSE CUP MM PRN (12:35)
[2016-10-08] MEDS: diphenhydrAMINE HCL 50 MG CAPSULE PO PRN (21:27)
[2016-10-08] MEDS: THIAMINE HCL 100 MG TABLET (FP) PO SCH (21:27)
[2016-10-08] MEDS: QUEtiapine FUMARATE 50 MG TABLET PO SCH (21:27)
[2016-10-09] MEDS: METHADONE HCL 40 MG DISPERSABLE TABLET PO SCH (06:03)
[2016-10-09] MEDS: IBUPROFEN 600 MG TABLET (FP) PO PRN ×2 (06:04→21:26)
[2016-10-09] MEDS: AMOXICILLIN 500 MG CAPSULE (FP) PO SCH ×3 (06:04→21:29)
[2016-10-09] MEDS: ACETAMINOPHEN 325 MG TABLET (FP) PO PRN (08:43)
[2016-10-09] MEDS: LIDOCAINE VISCOUS 2% ORAL/TOP 20 ML UNIT-DOSE CUP MM PRN ×2 (08:43→21:28)
[2016-10-09] MEDS ORDERED: PT OWN MED DRAWER 7, Y5N ONE ×2 (09:03→23:08)
[2016-10-09] MEDS: NICOTINE 21 MG/24 HOURS TOPICAL PATCH TD SCH (10:13)
[2016-10-09] MEDS: CLOTRIMAZOLE 1% CREAM 15 GM TUBE TP SCH ×2 (10:13→21:26)
[2016-10-09] MEDS: PRENATAL VITAMINS W/ FOLIC ACID TABLET (FP) PO SCH (10:14)
[2016-10-09] MEDS: SILVER SULFADIAZINE 1% TOP CREAM 50 GM JAR TP SCH ×2 (10:14→21:29)
[2016-10-09] MEDS: HYDROCORTISONE 1% TOPICAL CREAM 30 GM TUBE TP SCH ×2 (10:14→21:26)
[2016-10-09] MEDS: THIAMINE HCL 100 MG TABLET (FP) PO SCH (21:26)
[2016-10-09] MEDS: QUEtiapine FUMARATE 50 MG TABLET PO SCH (21:28)
[2016-10-09] MEDS: diphenhydrAMINE HCL 50 MG CAPSULE PO PRN (21:29)
[2016-10-10] MEDS: AMOXICILLIN 500 MG CAPSULE (FP) PO SCH (06:19)
[2016-10-10] MEDS: METHADONE HCL 40 MG DISPERSABLE TABLET PO SCH (06:20)
[2016-10-10 06:49] VITALS: BP 103/67; PULSE 65; TEMP 98
[2016-10-10] MEDS ORDERED: PT OWN MED DRAWER 7, Y5N ONE (07:28)
--- NOTE | 2016-10-10 09:00 | PN ---
Psychiatric Progress Note Vital Signs: Vital Signs Period Temp Pulse Resp BP Sys/Espinosa Pulse Ox Last 24 Hr 98.0 F 65 16-18 103/67 Date of Session: 10/10/16 Chief Complaint:: Discharge visit HPI: Patient addressed Opioid and Anxiolytic dependence comorbid with Bipolar disorder,PTSD. ROS: unremarkable Current Medications: Active Medications Generic Name Dose Route Start Last Admin Trade Name Freq PRN Reason Stop Dose Admin Acetaminophen 650 mg 09/19/16 13:54 10/09/16 08:43 Tylenol - PO 650 mg Q4H PRN Administration PAIN Al Hydroxide/Mg Hydroxide 30 ml 09/19/16 13:54 Mylanta Oral Suspension - PO Q6H PRN DYSPEPSIA Amoxicillin 500 mg 10/03/16 14:00 10/10/16 06:19 Amoxicillin - PO 500 mg TID ZOHAIB Administration Clotrimazole 1 applic 09/30/16 22:00 10/09/16 21:26 Lotrimin 1% Cream - TP Not Given BID ZOHAIB Diphenhydramine HCl 50 mg 09/19/16 13:54 10/09/16 21:29 Benadryl - PO 50 mg HSMR1 PRN Administration INSOMNIA Eucalyptus/Menthol/Phenol/Sorbitol 1 each 09/19/16 13:54 Cepastat Lozenge - MM Q4H PRN SORE THROAT Guaifenesin 10 ml 09/19/16 13:54 Robitussin Dm - PO Q6H PRN COUGH Hydrocortisone 1 applic 10/03/16 22:00 10/09/16 21:26 Hytone 1% Cream - TP Not Given BID [facility] Hydroxyzine Pamoate 50 mg 09/19/16 13:54 10/03/16 17:57 Vistaril - PO 50 mg Q4H PRN Administration AGITATION Ibuprofen 600 mg 09/19/16 13:59 10/09/16 21:26 Motrin - PO 600 mg Q6H PRN Administration PAIN Lidocaine HCl 15 ml 10/03/16 14:02 10/09/16 21:28 Xylocaine 2% Viscous Oral - MM 15 ml Q4H PRN Administration ORAL PAIN/MOUTH SORES Loperamide HCl 4 mg 09/19/16 13:54 Imodium - PO Q6H PRN DIARRHEA Magnesium Citrate 300 ml 09/19/16 13:54 Citroma - PO Q48H PRN CONSTIPATION Magnesium Hydroxide 30 ml 09/19/16 13:54 Milk Of Magnesia - PO DAILY PRN CONSTIPATION Methadone HCl 80 mg 10/07/16 06:00 10/10/16 06:20 Dolophine - PO 80 mg DAILY@0600 ZOHAIB Administration Nicotine 21 mg 09/20/16 10:00 10/09/16 10:13 Nicoderm Patch - TD 21 mg DAILY ZOHAIB Administration Nicotine Polacrilex 4 mg 09/19/16 13:54 10/08/16 10:10 Nicorette Gum - BUC 4 mg Q2H PRN Administration NICOTINE REPLACEMENT RX Multivit/Folic Acid/Iron 1 tab 09/20/16 10:00 10/09/16 10:14 Vitamins (Sjr) - PO 1 tab DAILY ZOHAIB Administration Pseudoephedrine/Triprolidine 1 combo 09/19/16 13:54 Actifed - PO TID PRN NASAL CONGESTION Quetiapine Fumarate 150 mg 10/01/16 22:00 10/09/16 21:28 Seroquel - PO 150 mg HS ZOHAIB Administration Silver Sulfadiazine 1 applic 09/19/16 22:00 10/09/16 21:29 Silvadene - TP Not Given BID ZOHAIB Thiamine HCl 100 mg 09/19/16 22:00 10/09/16 21:26 Vitamin B1 - PO 100 mg HS ZOHAIB Administration Current Side Effect: No Lab tests ordered: No Lab tests reviewed: Yes Provider note:: Patient completed this program today.She has met her treatment goals and will continue to address her issues on outpatient basis at [facility] in [facility].Patient continues to find that seroquel 150 mg po hs helps to reduce mood instability,sleeping difficulties.Script provided for 30 days supply.Supportive therapy provided,relapse prevention has been discussed. Patient is stable for discharge today. Total face to face time:: 30 Mental Status Exam - Mental Status Exam Alert and Oriented to: Time, Place, Person Cognitive Function: Grossly Intact Patient Appearance: Well Groomed Mood: Euthymic Affect: Mood Congruent Patient Behavior: Cooperative Speech Pattern: Clear Voice Loudness: Normal Thought Process: Goal Oriented Thought Disorder: Not Present Hallucinations: Denies Suicidal Ideation: Denies Homicidal Ideation: Denies Insight/Judgement: Fair Sleep: Fair Appetite: Good Muscle strength/Tone: Normal Gait/Station: Normal Psychiatric Treatment Plan - Problem List (1) Benzodiazepine dependence Current Visit: Yes (2) Bipolar disorder Current Visit: Yes (3) Methadone maintenance therapy patient Current Visit: Yes (4) Nicotine dependence Current Visit: Yes (5) Opioid dependence Current Visit: Yes (6) PTSD (post-traumatic stress disorder) Current Visit: Yes
== END 2016-10-10 09:05 | disposition home or self-care (01) | DRG 772 ==
LOC: YASAS 11:09 → Y3E 14:05
PROVIDERS: ADMIT Psychiatry & Neurology Psychiatry; ATTEND Psychiatry & Neurology Psychiatry
PROC: HZ42ZZZ Group Counseling for Substance Abuse Treatment, Cognitive-Behavioral (ICD-10-PCS; principal; 2016-10-10)
DX: F11.20 Opioid dependence, uncomplicated (principal); F13.20 Sedative, hypnotic or anxiolytic dependence, uncomplicated; F17.210 Nicotine dependence, cigarettes, uncomplicated; F31.9 Bipolar disorder, unspecified; F43.10 Post-traumatic stress disorder, unspecified; L02.512 Cutaneous abscess of left hand
CPT/HCPCS: 36415; 80053; 81003; 81015; 85027; 86593; 93005; 93010